=== PATIENT | female | born 1945 | race Caucasian/White ===

== ENCOUNTER 2024-04-07 07:31 | Outpatient (CLI) | payer MEDICARE, SELFPAY ==
--- NOTE | ~2024-04-07 | US_ITS ---
Limited Abdominal Sonogram: Real-time sonographic imaging of the right upper quadrant was performed. Clinical History: Abnormal lab results Findings: The liver appears normal with no evidence of mass lesion or bile duct dilatation. Main por guillermo vein demonstrates normal direction of flow. The gallbladder is well distended, and contains echog enic, shadowing gallstones. No definite gallbladder wall thickening. The common bile duct measures 4 mm. The visualized pancreas, aorta, and IVC are unremarkable. Impression: Cholelithiasis. Reviewed, dictated and finalized at location M[facility] Impression: Cholelithiasis.
== END 2024-04-07 07:32 | disposition home or self-care (01) ==
PROVIDERS: PCP Internal Medicine; Visit Provider Internal Medicine
DX: R89.9 Unspecified abnormal finding in specimens from other organs, systems and tissues (principal); K80.20 Calculus of gallbladder without cholecystitis without obstruction
CPT/HCPCS: 76705